=== PATIENT | male | born 1985 | race Hispanic/Latino ===

== ENCOUNTER 2019-08-30 14:31 | Emergency (ER) | payer OTHER, SELFPAY ==
[2019-08-30] MEDS ORDERED: METHYLPREDNISOLONE SOD SUCC 40MG/ML 1ML ONE (14:41)
[2019-08-30] MEDS ORDERED: ACETAMINOPHEN EXTRA STRENGTH 500 MG TABLET ONE (14:42)
[2019-08-30] MEDS ORDERED: ONDANSETRON HCL 4 MG/2 ML VIAL ONE (14:42)
== END 2019-08-30 17:24 | disposition home or self-care (01) ==
LOC: EDH 14:31
DX: U07.1 COVID-19 (principal)
CPT/HCPCS: 71045; 96374; 96375; 99284; J2405; J2920; U0003; 36415

== ENCOUNTER 2020-10-30 06:08 | Emergency (ER) | payer OTHER ==
[~2020-10-30] VITALS: Ht 165.1 cm; Wt 90.7 kg
[2020-10-30 06:19] VITALS: BP 142/85
[2020-10-30 06:49] LABS: BASOPHILS % (AUTO) 0.4 % (0.0-5.0); EOSINOPHILS % (AUTO) 2.8 % (0.0-8.0); HEMATOCRIT 44.3 % (42-54); MEAN CORPUSCULAR HEMOGLOBIN 30.1 pg (27.0-33.0); MEAN CORPUSCULAR HGB CONC 34.5 g/dL (32.0-36.0); MEAN CORPUSCULAR VOLUME 87.2 fL (79-99); MONOCYTES % (AUTO) 6.4 % (3.0-13.0); PLATELET COUNT (AUTO) 333 K/uL (130-400); RED BLOOD CELL COUNT(AUTO) 5.08 MIL/uL (4.50-6.20); RED CELL DISTRIBUTION WIDTH 12.9 % (11.0-15.5); WHITE BLOOD COUNT (AUTO) 9.8 K/uL (4.8-10.8)
[2020-10-30 07:19] LABS: ALBUMIN 3.7 g/dL (3.5-5.0); BILIRUBIN,TOTAL 0.5 mg/dL (0.2-1.0); CREATININE 0.8 mg/dL (0.5-1.5); CRP QUANTITATIVE 22.1 mg/L (0.00-9.0); TOTAL PROTEIN, SERUM 8.1 g/dL (6.0-8.3)
[2020-10-30] MEDS ORDERED: DOXY-336 PO (07:55)
[2020-10-30] MEDS ORDERED: BENZ-17 PO (07:55)
== END 2020-10-30 08:21 | disposition home or self-care (01) ==
LOC: EDH 06:08
DX: J20.9 Acute bronchitis, unspecified (principal); Z20.822 Contact with and (suspected) exposure to COVID-19
CPT/HCPCS: 36415; 71045; 80053; 82550; 84484; 85025; 85378; 86140; 87635; 87804 ×2; 99284; C9803

== ENCOUNTER 2020-11-19 08:25 | Emergency (ER) | payer OTHER ==
[~2020-11-19] VITALS: Ht 165.1 cm; Wt 90.7 kg
[~2020-11-19 08:25] MED LIST: BENZ-17 PO; DOXY-336 PO
[2020-11-19 08:26] VITALS: BP 136/84
[2020-11-19] MEDS ORDERED: LORA10TA7 PO (11:47)
[2020-11-19] MEDS ORDERED: FLUT16H NASAL (11:47)
[2020-11-19] MEDS ORDERED: AMOX-429 PO (11:47)
== END 2020-11-19 12:01 | disposition home or self-care (01) ==
LOC: EDH 08:25
DX: H66.91 Otitis media, unspecified, right ear (principal); J32.9 Chronic sinusitis, unspecified; Z20.822 Contact with and (suspected) exposure to COVID-19; Z79.899 Other long term (current) drug therapy
CPT/HCPCS: 71045; 87635; 87804 ×2; 87880; 99284; C9803